=== PATIENT | female | born 1960 | race Caucasian/White ===

== ENCOUNTER → 2018-01-12 14:28 | Outpatient (CLI) | payer OTHER, SELFPAY ==
--- NOTE | 2018-01-12 14:38 | EKG12_ITS ---
Test Reason : PREOP Blood Pressure : / mmHG Vent. Rate : 083 BPM Atrial Rate : 083 BPM P-R Int : 146 ms QRS Dur : 078 ms QT Int : 364 ms P-R-T Axes : 066 058 050 degrees QTc Int : 427 ms Normal sinus rhythm Normal ECG Confirmed by GAMA HOWELL, SANA ([id number]), assignment editor MIGUEL HOLLINGSWORTH ([id number]) on 01/13/2018 3:21:10 PM Referred By: Karmen Mehta Confirmed By:SANA MALLOY MD
== END ==
PROVIDERS: Family Provider Family Medicine; PCP Family Medicine; Visit Provider Physician Assistant
DX: Z01.810 Encounter for preprocedural cardiovascular examination (principal)
CPT/HCPCS: 93005